=== PATIENT | male | born 1995 | race African-American/Black ===

== ENCOUNTER 2017-09-29 09:57 | Emergency (ER) | payer SELFPAY ==
[~2017-09-29] VITALS: Ht 188 cm; Wt 63.5 kg
[2017-09-29 10:16] VITALS: BP 128/51; PULSE 80; RESP 16; TEMP 98.7; O2SAT 100
[2017-09-29] MEDS ORDERED: AZITHROMYCIN PWD FOR SUSP 1 GM PACKET PO ONE (10:45)
[2017-09-29] MEDS ORDERED: cefTRIAXone 250 MG VIAL IM ONE (10:45)
--- NOTE | 2017-09-29 10:49 | PD ---
HPI Chief Complaint: Complaint Time Seen by Provider: 10:25 (Aislinn Antoine) Time Seen by Provider: 10:25 (Holly Muñoz MD) Travel History International Travel<30 days: No Contact w/Intl Traveler<30days: No Traveled to known affect area: No (Aislinn Antoine) History of Present Illness HPI 22-year-old male presents to the emergency room for evaluation of dysuria, urgency, frequency, and green penile discharge that started last night. Patient states he woke up this morning and the symptoms were severe. States he had associated deep abdominal and groin pain which is what made him come straight to the emergency room. He last had unprotected sex between 2 weeks and 1 month ago. He denies fever, chills, nausea, vomiting, diarrhea, or flank pain. Denies any chronic medical conditions or daily medications. (Aislinn Antoine) PFSH Social History Tobacco Use: No (Aislinn Antoine) Allergies-Medications (Allergen,Severity, Reaction): Coded Allergies: No Known Allergies (Unverified , 09/29/17) Reported Meds & Prescriptions Reported Meds & Active Scripts Active (Holly Muñoz MD) Review of Systems Except as stated in HPI: all other systems reviewed are Neg (Aislinn Antoine) Physical Exam Narrative GENERAL: Well-nourished, well-developed male in no acute distress. Afebrile. Ambulatory. SKIN: Focused skin assessment warm/dry. HEAD: Normocephalic. EYES: No scleral icterus. No injection or drainage. NECK: Supple, trachea midline. No JVD or lymphadenopathy. CARDIOVASCULAR: Regular rate and rhythm without murmurs, gallops, or rubs. RESPIRATORY: Breath sounds equal bilaterally. No accessory muscle use. GASTROINTESTINAL: Abdomen soft, non-tender, nondistended. GENITOURINARY: Examined in the presence of a nurse. Uncircumcised. Testes descended bilaterally without evidence of rotation; nontender. No lesions or erythema. No urethral discharge. (Aislinn Antoine) Data Data Last Documented VS Vital Signs Date Time Temp Pulse Resp B/P (MAP) Pulse Ox O2 Delivery O2 Flow Rate FiO2 09/29/17 10:16 98.7 80 16 128/51 (76) 100 (Holly Muñoz MD) Orders Orders Urinalysis - C+S If Indicated (09/29/17 10:40) Gc And Chlamydia Pcr (09/29/17 10:40) Azithromycin Powd Pack (Zithromax Powd P (09/29/17 10:45) Ceftriaxone Inj (Rocephin Inj) (09/29/17 10:45) Urine Culture (09/29/17 10:55) Ed Discharge Order (09/29/17 11:42) (Holly Muñoz MD) Labs Laboratory Tests Test 09/29/17 10:55 Urine Color YELLOW Urine Turbidity HAZY Urine pH 8.5 Urine Specific [place] 1.021 Urine Protein TRACE mg/dL Urine Glucose (UA) NEG mg/dL Urine Ketones NEG mg/dL Urine Occult Blood NEG Urine Nitrite NEG Urine Bilirubin NEG Urine Urobilinogen 2.0 MG/DL Urine Leukocyte Esterase SMALL Urine RBC 2 /hpf Urine WBC 14 /hpf Urine Amorphous Sediment FEW Urine Bacteria RARE /hpf Urine Mucus FEW /lpf Microscopic Urinalysis Comment CULTURE INDICATED (Holly Muñoz MD) MDM Medical Decision Making Medical Screen Exam Complete: Yes Emergency Medical Condition: Yes Medical Record Reviewed: Yes Differential Diagnosis UTI, STD, torsion, epididymitis Narrative Course 22-year-old male presents to the emergency room for evaluation of urinary urgency, frequency, dysuria, and penile discharge for the past day. Patient has had unprotected sex between 2 weeks and 1 month ago. States he is concerned it is an STD. Physical exam is unremarkable. There is no penile discharge. Testes nontender without evidence of rotation. UA shows evidence of infection, likely contamination from STD; will await cultures to treat for UTI. Patient was treated empirically in the emergency room with azithromycin and ceftriaxone. Told to follow-up with a primary care physician/health department for further treatment. Told to return for worsening symptoms. He understands and agrees to plan. (Aislinn Antoine) Diagnosis Primary Impression: Sexually transmitted disease (STD) Referrals: Primary Care Physician [facility]. Additional Instructions: Follow-up with health department for complete STD testing. Follow-up with a primary care physician. Return for worsening symptoms. Disposition: 01 DISCHARGE HOME Condition: Stable Aislinn Antoine Sep 29, 2017 10:49 Holly Muñoz MD Sep 29, 2017 11:47
[2017-09-29 11:35] LABS: AMORPHOUS SEDIMENT, URINE FEW; BACTERIA, URINE RARE /hpf; BILIRUBIN, URINE NEG (NEG); BLOOD, URINE NEG (NEG); GLUCOSE,URINE NEG (NEG); KETONE, URINE NEG (NEG); MUCUS URINE FEW /lpf (OCC); NITRITE,URINE NEG (NEG); PH, URINE 8.5 (5.0-8.5); URINE COLOR YELLOW (YELLW/STRAW); URINE LEUKOCYTE ESTERASE SMALL (NEG)
[2017-09-29] MEDS ORDERED: CEPH-460 PO (11:40)
== END 2017-09-29 11:52 | disposition home or self-care (01) ==
LOC: NEPK 09:57
DX: A64 Unspecified sexually transmitted disease (principal)
CPT/HCPCS: 81001; 87086; 87491; 87591; 96372; 99283; J0696